=== PATIENT | female | born 1990 | race Caucasian/White ===

== ENCOUNTER 2016-05-14 08:12 | Day surgery (SDC) | payer OTHER ==
[~2016-05-14] VITALS: Ht 165.1 cm; Wt 86.2 kg
[~2016-05-14 08:12] MED LIST: ALTAVERA1 EACH PO; BACTRIM,SEPT1 TABLET PO; BENTYL10 MG PO; BLISOVI FE 1.51 EACH PO; DIFLUCAN; ENDOCET 5-3251 EACH PO; FLAGYL; FLONASE16 GM NS; FLUTICASONE PRO16 GM BOTH NARES; HIZENTRA2 GM/10 ML SQ; IBUPROFEN800 MG PO; ORTHO TRI-CY1 TABLE1 PO; PRENATAL TABLE1 EAC3 PO; PROBIOTIC1 EAC1 PO; VALTREX50 MG/ML; VALTREX50 MG/ML PO; VICODIN,LORT1 TABLET PO
[2016-05-14 08:47] VITALS: BP 106/52
[2016-05-14 12:11] VITALS: BP 110/62
[2016-05-14 13:10] VITALS: BP 113/58
== END 2016-05-14 13:20 | disposition home or self-care (01) ==
LOC: SDC 08:12
DX: R10.2 Pelvic and perineal pain (principal); N94.10 Unspecified dyspareunia; R19.8 Other specified symptoms and signs involving the digestive system and abdomen; K62.89 Other specified diseases of anus and rectum; N80.3 Endometriosis of pelvic peritoneum; Z30.2 Encounter for sterilization; K66.0 Peritoneal adhesions (postprocedural) (postinfection); Z87.891 Personal history of nicotine dependence; D80.1 Nonfamilial hypogammaglobulinemia; J45.20 Mild intermittent asthma, uncomplicated; E66.3 Overweight; Z68.31 Body mass index [BMI] 31.0-31.9, adult; Z83.79 Family history of other diseases of the digestive system; Z82.49 Family history of ischemic heart disease and other diseases of the circulatory system; Z80.6 Family history of leukemia; Z88.1 Allergy status to other antibiotic agents; Z88.8 Allergy status to other drugs, medicaments and biological substances
CPT/HCPCS: 88305; J0131; J0690; J1100; J1170; J1644; J1885; J2250; J2405; J2710; J2765; J3010

== ENCOUNTER 2017-08-04 19:38 | Emergency (ER) | payer OTHER ==
[~2017-08-04] VITALS: Ht 165.1 cm; Wt 88.5 kg
[2017-08-04 20:01] LABS: APPEARANCE CLEAR ((CLEAR)); BILIRUBIN NEGATIVE; BLOOD NEGATIVE; COLOR YELLOW ((YELLOW)); GLUCOSE (STRIP) NEGATIVE; KETONES 20; LEUKOCYTES NEGATIVE; NITRITE NEGATIVE; PROTEIN (STRIP) 30; SPECIFIC GRAVITY 1.027 (1.000-1.030); UCUL ADDED? NO; UROBILINOGEN 0.2 MG/DL (0.2-1.0)
[2017-08-04 20:14] LABS: HEMATOCRIT 44.3 % (36.0-46.0); HEMOGLOBIN 15.7 G/DL (11.9-15.5); MCH 31.8 PG (29.0-34.0); MCHC 35.4 G/DL (30.0-36.0); MCV 89.7 FL (83-99); PLATELET COUNT 150 K/uL (156-360); RBC DIS.WIDTH-SD 39.4 % (39-53); RED BLOOD COUNT 4.94 M/uL (3.80-5.20); WHITE BLOOD COUNT 4.8 K/uL (4.1-10.2)
[2017-08-04 20:32] LABS: ALBUMIN 4.3 g/dL (3.2-4.8); CHLORIDE 105 mEq/L (99-109); POTASSIUM 3.9 mEq/L (3.7-5.4); SODIUM 139 mEq/L (136-147)
[2017-08-04 20:35] LABS: GLUCOSE 98 mg/dL (70-99); TOTAL PROTEIN 7.4 g/dL (6.4-8.3)
[2017-08-04 20:37] LABS: TOTAL BILIRUBIN 0.7 mg/dL (0.0-1.0)
[2017-08-04 20:38] LABS: ALKALINE PHOSPHATASE 50 IU/L (3-129); GFR ESTIMATE (CALCULATED) > 59 mL/min/
[2017-08-04 20:39] LABS: UREA NITROGEN (BUN) 12 mg/dL (9-23)
[2017-08-04 20:40] LABS: AST (GOT) 23 IU/L (2-34)
[2017-08-04 20:41] LABS: ALT (GPT) 25 IU/L (3-49)
[2017-08-04 20:51] LABS: QUANTITATIVE HCG < 4.0 MIU/ML
[2017-08-04] MEDS ORDERED: ZOFRAN ODT4 MG PO (21:51)
[2017-08-04] MEDS ORDERED: BENTYL20 MG PO (21:51)
[2017-08-04 22:14] VITALS: BP 128/84
== END 2017-08-04 22:15 | disposition home or self-care (01) ==
LOC: EME 19:38
PROVIDERS: Nurse Practitioner Family
DX: K29.70 Gastritis, unspecified, without bleeding (principal); R19.7 Diarrhea, unspecified; J45.909 Unspecified asthma, uncomplicated; F31.9 Bipolar disorder, unspecified; Z87.891 Personal history of nicotine dependence; Z86.2 Personal history of diseases of the blood and blood-forming organs and certain disorders involving the immune mechanism; Z86.19 Personal history of other infectious and parasitic diseases; Z95.1 Presence of aortocoronary bypass graft; Z88.0 Allergy status to penicillin
CPT/HCPCS: 80053; 81003; 84702; 85027; 87502; 99281; 99285; J1885; J7030